=== PATIENT | female | born 1930 | race Caucasian/White ===

== ENCOUNTER 2017-08-08 12:02 | Inpatient (IN) | payer MEDICARE ==
[~2017-08-08] VITALS: Ht 170.2 cm; Wt 79.5 kg
[~2017-08-08 12:02] MED LIST: ADVAIR 100-501 EACH; AMIODARONE50 MG/1 M1 PO; ARICEPT5 MG PO; ASPIR 8181 MG; B-121000 MCG; CALCIUM 500+D1 EACH; CLOPIDOGREL75 MG PO; DEXILANT60 MG PO; GABAPENTIN300 MG PO; GINKGO BILOBA120 MG; GLUCOSAMINE1000 MG; LISINOPRIL10 MG PO; MIRAPEX0.25 MG PO; NORVASC5 MG PO; SPIRONOLACTONE50 MG; SYNTHROID125 MCG PO; TIZANIDINE HCL2 MG; VERAPAMIL ER120 MG; VESICARE5 MG PO; [UNRECOGNIZED DRUG - OTHER] PO
[2017-08-08 13:11] LABS: BILIRUBIN,URINE NEGATIVE (NEGATIVE); CLARITY,URINE CLEAR (CLEAR); COLOR,URINE YELLOW (YELLOW); KETONES,URINE NEGATIVE (NEGATIVE); LEUKOCYTE ESTERASE ,URINE 2+ (NEGATIVE); NITRITE,URINE NEGATIVE (NEGATIVE); PROTEIN,URINE DIPSTICK NEGATIVE (NEGATIVE); URINE UROBILINOGEN 0.2 mg/dL (0.2 - 1)
[2017-08-08 13:27] LABS: EPITHELIAL CELLS,URINE RARE /LPF
[2017-08-08 13:28] LABS: BASOPHILS % 0.5 % (0.0-1.0); EOSINOPHILS # (AUTO) 0.2 (0.0-0.4); EOSINOPHILS % 2.6 % (0.0-6.0); HEMATOCRIT 32.1 % (34.2-44.1); HEMOGLOBIN 10.7 g/dL (12.0-16.0); LYMPHOCYTES # (AUTO) 2.1 (1.0-3.2); LYMPHOCYTES % 28.2 % (18.0-39.1); MEAN CORPUSCULAR HEMOGLOBIN 32.2 pg (28-32); MEAN CORPUSCULAR HGB CONC 33.3 g/dL (31-35); MEAN CORPUSCULAR VOLUME 96.7 fL (81-99); MONOCYTES # (AUTO) 0.7 (0.2-0.8); MONOCYTES % 9.8 % (4.4-11.3); NEUTROPHILS # (AUTO) 4.3 (2.1-6.9); NEUTROPHILS % 58.6 % (38.7-80.0); PLATELET COUNT 200 x10e3/uL (140-360); RED BLOOD COUNT 3.32 x10e6/uL (3.6-5.1); RED CELL DISTRIBUTION WIDTH 12.5 % (11.7-14.4)
[2017-08-08 13:52] LABS: ALBUMIN 4.1 g/dL (3.5-5.0); ALBUMIN/GLOBULIN RATIO 1.3 (0.8-2.0); ANION GAP 15.1 mmol/L (8-16); CALCIUM 9.3 mg/dL (8.4-10.2); CREATININE, SERUM 1.49 mg/dL (0.57-1.11)
[2017-08-08 13:55] LABS: POTASSIUM 7.1 mmol/L (3.5-5.1)
[2017-08-08] MEDS ORDERED: SODIUM BICARBONATE 8.4% 50 ML VIAL IV STA (13:55)
[2017-08-08] MEDS ORDERED: DEXTROSE 50% SYRINGE 50 ML IV STA ×2 (13:55→22:52)
[2017-08-08] MEDS ORDERED: INSULIN REGULAR, HUMAN 100 UNIT/1 ML 3ML VIAL IV ONE ×2 (14:00→23:00)
[2017-08-08] MEDS ORDERED: CALCIUM GLUCONATE 10% INJ 0.465 MEQ/ML VIAL ONE (14:07)
[2017-08-08] MEDS ORDERED: SODIUM CHLORIDE 0.9% 250ML 250 ML ONE (14:10)
[2017-08-08] MEDS ORDERED: SODIUM BICARBONATE 8.4% INJ 50 ML SYR IV NR (14:15)
[2017-08-08] MEDS ORDERED: SOD POLYSTYRENE SULFONATE SUSP 15 GM/60 ML BTL PO NR (14:15)
[2017-08-08] MEDS ORDERED: ADVAIR 100-501 EACH INH (14:21)
[2017-08-08] MEDS ORDERED: AMIODARONE HCL200 MG PO (14:21)
[2017-08-08] MEDS ORDERED: TIZANIDINE HCL2 M1 PO (14:21)
[2017-08-08] MEDS ORDERED: CALCIUM GLUCONATE IV ONE (14:30)
[2017-08-08] MEDS ORDERED: SODIUM CHLORIDE 0.9% IV ONE (14:30)
--- NOTE | 2017-08-08 14:39 | Diagnostic Imaging Report ---
PROCEDURE: A single AP view of the chest. COMPARISON: Chest portable 06/17/2016. INDICATIONS: HIGH POTASSIUM LEVEL FINDINGS: Lines/tubes: None. Lungs: The lungs are well inflated and clear. There is no evidence of pneumonia or pulmonary edema. Bibasilar atelectasis. Pleura: There is no pleural effusion or pneumothorax. Heart and mediastinum: The heart and the mediastinum are unremarkable. Bones: No acute bony abnormality. Degenerative changes of the thoracic spine. IMPRESSION: No acute radiographic abnormality. Dictated by: Adam Up M.D. on 08/08/2017 at 14:39 Electronically approved by: Adam Up M.D. on 08/08/2017 at 14:39
[2017-08-08] MEDS: SODIUM CHLORIDE 0.9% 1000ML 1,000 ML IV SCH ×2 (16:10→23:40)
[2017-08-08 18:34] LABS: ANION GAP 19.6 mmol/L (8-16); CALCIUM 10.6 mg/dL (8.4-10.2); CREATININE, SERUM 1.49 mg/dL (0.57-1.11)
[2017-08-08 18:35] LABS: POTASSIUM 6.6 mmol/L (3.5-5.1)
--- OUTSIDE RECORDS SUMMARY | 2017-08-08 19:27 | XMS REPORT ---
[facility] Address Unknown Phone Unavailable Care Team Providers Care Events Assistant Name Role Phone AMBROSIO DAVIS Unavailable Unavailable Problems This patient has no known problems. Allergies, Adverse Reactions, Alerts This patient has no known allergies or adverse reactions. Medications This patient has no known medications. Results Test Description Test Time Test Comments Text Results Atomic Results Result Comments CHEST SINGLE (PORTABLE) [place] [id number] Patient Name: EVENS WISEMAN MR #: [id number] : 1930 Age/Sex: 86/F Req #: [id number] Adm Physician: Ordered by: AMBROSIO DAVIS MD Report #: [id number] Location: ER Room/Bed: Procedure: [id number] DX/CHEST SINGLE (PORTABLE) Exam Date: 08/08/17 Exam Time: 1415 REPORT STATUS: Signed PROCEDURE: A single AP view of the chest. COMPARISON: Chest portable 06/17/2016. INDICATIONS: HIGH POTASSIUM LEVEL FINDINGS: Lines/tubes: None. Lungs: The lungs are well inflated and clear. There is no evidence of pneumonia or pulmonary edema. Bibasilar atelectasis. Pleura: There is no pleural effusion or pneumothorax. Heart and mediastinum: The heart and the mediastinum are unremarkable. Bones: No acute bony abnormality. Degenerative changes of the thoracic spine. IMPRESSION: No acute radiographic abnormality. Dictated by: Sybil Robin M.D. on 2017 at 14:39 Electronically approved by: Sybil Robin M.D. on 2017 at 14:39 Dictated By: SYBIL ROBIN MD [id number] Transcribed By: PHILIP on 08/08/17 1439 COPY TO: AMBROSIO DAVIS MD
[2017-08-08 19:34] VITALS: BP 157/96
[2017-08-08 20:00] VITALS: BP 159/70
[2017-08-08] MEDS ORDERED: SOD POLYSTYRENE SULFONATE SUSP 15 GM/60 ML BTL PO ONE (22:15)
[2017-08-08] MEDS ORDERED: ACETAMINOPHEN 325 MG TAB PO PRN (22:45)
[2017-08-08] MEDS ORDERED: SODIUM BICARBONATE 8.4% INJ 50 ML SYR IV STA (22:52)
[2017-08-08] MEDS ORDERED: CALCIUM GLUCONATE 10% INJ 4.65 MEQ in SODIUM CHLORIDE 0.9% 50ML 50 ML IV ONE (23:00)
[2017-08-09] VITALS: BP 159/70
[2017-08-09] MEDS ORDERED: SODIUM CHLORIDE 0.9% 50ML 50 ML ONE (00:07)
[2017-08-09] MEDS ORDERED: SOD POLYSTYRENE SULFONATE SUSP 15 GM/60 ML BTL PO ONE ×2 (01:00→02:45)
[2017-08-09 02:21] LABS: ANION GAP 17.2 mmol/L (8-16); CALCIUM 9.5 mg/dL (8.4-10.2); CREATININE, SERUM 1.51 mg/dL (0.57-1.11); POTASSIUM 5.2 mmol/L (3.5-5.1)
[2017-08-09 04:00] VITALS: BP 143/63
[2017-08-09 07:08] LABS: ANION GAP 15.7 mmol/L (8-16); CALCIUM 9.7 mg/dL (8.4-10.2); CREATININE, SERUM 1.44 mg/dL (0.57-1.11); POTASSIUM 5.7 mmol/L (3.5-5.1)
[2017-08-09 07:30] VITALS: BP 155/79
[2017-08-09] MEDS ORDERED: SOD POLYSTYRENE SULFONATE SUSP 15 GM/60 ML BTL PR NR (08:00)
[2017-08-09 08:08] VITALS: BP 155/79
--- NOTE | 2017-08-09 08:29 | Consultation ---
DATE OF CONSULTATION: August 09, 2017 REASON FOR CONSULTATION: Hyperkalemia. Thank you for allowing us to participate in Ms. Todd's care. This is an 86-year-old female with a history of dementia. Creatinine of 1.1 to 1.3 last year. Came in apparently feeling well. I think she has some memory loss noting that she has been on Aricept before. During outpatient evaluation, potassium was found to be elevated. She was brought to the hospital because of this. Emergency room evaluation confirmed potassium was 7.1. Although it does not appear on her med list, nursing staff noted that when they called the pharmacy she had recently filled a prescription of spironolactone. She denies any swelling. She does not recall any dyspnea. She denies any nausea, vomiting or feeling poorly. Denies any recent NSAID use. PAST HISTORY: Baseline creatinine 1.1 to 1.3, dementia, hypothyroidism, presumed osteoporosis, question of arrhythmia. She has been on amiodarone. Hypertension. HOME MEDICATIONS 1. Amiodarone 100 mg daily. 2. Amlodipine 5 mg a day. 3. Aspirin 81 mg a day. 4. Plavix 75 mg a day. 5. Aricept 5 mg daily. 6. Levothyroxine 125 mcg a day. 7. Tizanidine. 8. VESIcare. FAMILY HISTORY: She is not sure of any kidney problems. SOCIAL HISTORY: Apparently, lives with her . REVIEW OF SYSTEMS CONSTITUTIONAL: No fever or chills. CARDIAC: No angina or syncope. GI: Denied nausea or vomiting. MUSCULOSKELETAL: No arthralgias. VASCULAR: Denies swelling. The rest of the review is negative. PHYSICAL EXAMINATION GENERAL: Laying in bed in no distress. VITALS: Temperature is 96.1, pulse 83, blood pressure 143/63. HEENT: Grossly atraumatic. NECK: No JVD. CHEST: Clear. Bilateral breath sounds are equal. CARDIAC: Normal heart tones. Rhythm sounds regular. Faint systolic murmur. ABDOMEN: Benign. Liver with no masses palpable. EXTREMITIES: Trace edema. NEURO: Appears to be forgetful. She does not recall taking Kayexalate at all. SKIN: No rash. Exposed areas with some evidence of sun damage. LABS: Hemoglobin 10.7. Potassium is down to 5.7 from 7.1. It did come up from 5.3 in the interim. Serum CO2 is 19, creatinine 1.44, BUN 29. UA is bland, but did show 2+ leukocyte esterase. ASSESSMENT 1. Hyperkalemia, possibly medication related as there is some concern about her taking spironolactone. 2. Hypertension. 3. Minimal edema. 4. Metabolic acidosis. PLAN: Start hydrochlorothiazide p.o. Repeat Kayexalate one dose. Recheck potassium. Expect if she is taking spironolactone, some of the effects can be long-lasting over several days. She is already on clonidine for blood pressure control. P.o. sodium bicarbonate for her metabolic acidosis. Will follow along. I did explain to her that the main problem with potassium is the risk of cardiac arrest. She nodded understanding. Once again, her memory remains in question. Job#: [id number] LUIS ALBERTO
[2017-08-09] MEDS: SODIUM CHLORIDE 0.9% 1000ML 1,000 ML IV SCH ×3 (10:21→21:17)
[2017-08-09] MEDS: CLONIDINE HCL 0.1 MG TAB PO SCH ×2 (10:22→17:29)
[2017-08-09] MEDS: SODIUM BICARBONATE 650 MG TAB PO SCH (10:22)
[2017-08-09] MEDS: HYDROCHLOROTHIAZIDE 25 MG TAB PO SCH (10:22)
[2017-08-09 16:00] VITALS: BP 174/74
--- NOTE | 2017-08-09 17:01 | Diagnostic Imaging Report ---
PROCEDURE:US RETROPERITONEAL ( KIDNEY ). COMPARISON:Renal ultrasound 06/26/2015. INDICATIONS:ELEVATED CREATININE TECHNIQUE: Newell-scale and color sonographic images of the bilateral kidneys and bladder where obtained in transverse and longitudinal planes. FINDINGS: RIGHT KIDNEY: 8.7 x 3.7 x 5.0 cm, cortex 1.1 cm Cysts: None Solid masses: None Stones: None Hydronephrosis: None Echogenicity: Normal LEFT KIDNEY: 9.7 x 4.3 x 4.3 cm, cortex 1.1 cm Cysts: None Solid masses: None Stones: None Hydronephrosis: None Echogenicity: Normal Bladder: Not visualized CONCLUSION: Normal kidneys. Dictated by: Rikki Lui M.D. on 08/09/2017 at 17:00 Electronically approved by: Rikki Lui M.D. on 08/09/2017 at 17:00
[2017-08-09 17:58] LABS: ANION GAP 15.4 mmol/L (8-16); CALCIUM 8.7 mg/dL (8.4-10.2); CREATININE, SERUM 1.23 mg/dL (0.57-1.11); POTASSIUM 4.4 mmol/L (3.5-5.1)
[2017-08-09 20:00] VITALS: BP 140/67
[2017-08-10] VITALS (7 sets, daily range): BP systolic 127–170; BP diastolic 64–71
[2017-08-10] MEDS ORDERED: CLONIDINE HCL 0.1 MG TAB PO PRN (05:30)
[2017-08-10] MEDS: SODIUM CHLORIDE 0.9% 1000ML 1,000 ML IV SCH (06:04)
[2017-08-10 06:36] LABS: CALCIUM 8.4 mg/dL (8.4-10.2); CREATININE, SERUM 1.13 mg/dL (0.57-1.11); MAGNESIUM 1.5 MG/DL (1.3-2.1); PHOSPHORUS 3.5 MG/DL (2.3-4.7)
[2017-08-10] MEDS ORDERED: SOD POLYSTYRENE SULFONATE SUSP 15 GM/60 ML BTL PO NR (09:00)
[2017-08-10] MEDS: SODIUM BICARBONATE 650 MG TAB PO SCH (09:39)
[2017-08-10] MEDS: HYDROCHLOROTHIAZIDE 25 MG TAB PO SCH (09:39)
[2017-08-11] VITALS: BP 137/80
[2017-08-11 04:00] VITALS: BP 144/67
[2017-08-11 06:22] LABS: ANION GAP 11.9 mmol/L (8-16); CALCIUM 8.3 mg/dL (8.4-10.2); CREATININE, SERUM 1.02 mg/dL (0.57-1.11); POTASSIUM 3.9 mmol/L (3.5-5.1)
[2017-08-11 07:55] VITALS: BP 92/58
[2017-08-11 07:58] VITALS: BP 147/81
[2017-08-11] MEDS: HYDROCHLOROTHIAZIDE 25 MG TAB PO SCH (08:07)
[2017-08-11] MEDS: SODIUM BICARBONATE 650 MG TAB PO SCH (08:07)
[2017-08-11] MEDS ORDERED: CLONIDINE HCL0.1 MG PO (10:36)
[2017-08-11] MEDS ORDERED: SODIUM BICARBO650 MG PO (10:36)
[2017-08-11] MEDS ORDERED: ESIDRIX25 MG PO (10:37)
--- NOTE | 2017-08-11 14:27 | Discharge Summary ---
Ms. Todd is an 86-year-old female with a history of dementia, hypertension, arrhythmia, hypothyroidism. She came to the emergency room. Apparently she was not feeling good. She was found to have renal problems and hyperkalemia. She was seen by hand bander. At the present time, creatinine went down to 1.02 and potassium 3.9. CO2 is 23. The plan is to discharge her home and have her follow up as an outpatient. On physical examination, she is awake and alert. Blood pressure is 147/81. The heart is irregularly irregular. Lungs are clear to auscultation. Abdomen is soft. On the blood work, potassium is 3.9, creatinine 1.02, glucose 94, white count 7.37, hemoglobin 10.7. DISCHARGE DIAGNOSES 1. Vhtks-yr-nigwaaf kidney disease, improving. 2. Hyperkalemia, resolved. 3. Acidosis, resolved. 4. Dementia, supportive care. 5. Hypertension. The plan at the present time is to discharge the patient home if it is okay with the hand bander. Have her follow up as an outpatient with her PCP in 1 week. Please see home medication reconciliation list. All of this was discussed with the patient and her at the bedside, and all questions were answered to satisfaction. They are to call me or come back to the emergency room if any recurrent problem. ASHLEY QUIÑONEZ MD Job#: [id number]
== END 2017-08-11 11:04 | disposition home or self-care (01) | DRG 683 ==
LOC: ER 12:02 → MED/SURG2 19:24
PROVIDERS: ADMIT Internal Medicine; ATTEND Internal Medicine
DX: N17.9 Acute kidney failure, unspecified (principal); E87.2 Acidosis; E87.5 Hyperkalemia; F03.90 Unspecified dementia, unspecified severity, without behavioral disturbance, psychotic disturbance, mood disturbance, and anxiety; N18.3 Chronic kidney disease, stage 3 (moderate); E03.9 Hypothyroidism, unspecified; M81.0 Age-related osteoporosis without current pathological fracture; I12.9 Hypertensive chronic kidney disease with stage 1 through stage 4 chronic kidney disease, or unspecified chronic kidney disease; I49.9 Cardiac arrhythmia, unspecified; Z79.82 Long term (current) use of aspirin; Z79.02 Long term (current) use of antithrombotics/antiplatelets; T50.0X5A Adverse effect of mineralocorticoids and their antagonists, initial encounter
CPT/HCPCS: 36415; 71045; 76770; 80048; 80053; 81001; 82948; 83735; 84100; 84132; 85025; 93005; 99284; J0610; J7030; J7050; J7799

== ENCOUNTER 2017-11-05 08:24 | Inpatient (IN) | payer MEDICARE ==
[~2017-11-05] VITALS: Ht 170.2 cm; Wt 76.2 kg
[~2017-11-05 08:24] MED LIST changes: +ADVAIR 100-501 EACH INH; +AMIODARONE HCL200 MG PO; +CLONIDINE HCL0.1 MG PO; +ESIDRIX25 MG PO; +SODIUM BICARBO650 MG PO; +TIZANIDINE HCL2 M1 PO
--- OUTSIDE RECORDS SUMMARY | 2017-11-05 08:27 | XMS REPORT | Continuity of Care Document ---
Author Author [facility] Organization [facility] Address [address] [place] [address] Phone Unavailable Care Team Providers Care Wet Process Miller Head Name Role Phone NONSTAFF PCP Unavailable Insurance Providers Guarantor Luzma Todd Address [address] [place] [address] Email [email or web address] Payer [employer] Medicare Policy Number [id number] Subscriber's Name Luzma Todd Relationship 18 Self / Same As Patient Group Number [id number] Group Name [employer] Effective Date 17 Advance Directives Directive Response Recorded Date/Time Does the patient have an advance directive? No 08/08/17 8:00pm If yes, is advance directive on file with [facility]? No 06/17/16 3:30pm If not on file with [facility] will patient provide a copy? No 06/17/16 3:30pm Do you have a Directive to Physician? No 08/08/17 5:22pm Do you have a Medical Power of Gas Appliance Installer? No 08/08/17 5:22pm Do you have an out of hospital Do Not Resuscitate Order? No 08/08/17 5:22pm Do you have any special needs we should be aware of? No 08/08/17 5:22pm Do you have a support person here with you today? Yes 08/08/17 5:22pm Did patient receive Notice of Privacy Practices? Yes 08/08/17 5:22pm Did patient receive patient rights and responsibilities? Yes 08/08/17 5:22pm Problems Medical Problem Onset Date Status Altered mental status, unspecified Unknown Hyperkalemia Unknown Hypoglycemia Unknown Renal failure Unknown TIA (transient ischemic attack) Unknown Medications Current Home Medications Medication Dose Units Route Directions Days Qty Instructions Start Date Amiodarone Hcl 200 Mg Tablet 100 Mg Oral Daily Amlodipine Besylate (Norvasc) 5 Mg Tab 10 Mg Oral Daily 30 Tab Aspirin (Aspir 81) 81 Mg Tablet. Calcium Carbonate/Vitamin D3 (Calcium 500+D Tablet Chew) 1 Each Tab.chew Clonidine Hcl 0.1 Mg Tablet 1 Tab Oral Twice A Day 60 Tab Clopidogrel Bisulfate (Clopidogrel) 75 Mg Tablet 75 Mg Oral Daily 30 Tab Dexlansoprazole (Dexilant) 60 Mg Cap. 60 Mg Oral Daily THERAPEUTIC INTERCHANGE WITH PROTONIX PER [facility] Donepezil Hcl (Aricept) 5 Mg Tablet 10 Mg Oral Bedtime 60 Tab Fluticasone/Salmeterol (Advair 100-50 Diskus) 1 Each Disk.w.dev 2 Inh Inhalation As Needed Hydrochlorothiazide (Esidrix*) 25 Mg Tab 12.5 Mg Oral Daily Levothyroxine Sodium (Synthroid) 125 Mcg Tab 100 Mcg Oral Today At 6:30AM 30 Tab Pramipexole Di-Hcl (Mirapex) 0.25 Mg Tablet 0.125 Mg Oral Bedtime 30 Tab Sodium Bicarbonate 650 Mg Tablet 1,300 Mg Oral Daily 30 Tab Solifenacin Succinate (Vesicare) 5 Mg Tablet 10 Mg Oral Daily 30 Tab Tizanidine Hcl 2 Mg Capsule 2 Mg Oral Daily Past Home Medications Medication Directions Ordered Status Amiodarone Hcl 50 Mg/1 Ml Vial, 100 Mg Oral Daily Discontinued Circu Plus , 4500 Mg Oral Discontinued Cyanocobalamin (Vitamin B-12) (B-12) 1,000 Mcg Tablet.er, Discontinued Fluticasone/Salmeterol (Advair 100-50 Diskus) 1 Each Disk.w.dev, Discontinued Gabapentin 300 Mg Capsule, 300 Mg Oral Twice A Day Discontinued Ginkgo Biloba 120 Mg Tablet, 240 Discontinued Glucosamine Sulfate 2KCL (Glucosamine) 1,000 Mg Tablet, Discontinued Lisinopril 10 Mg Tablet, 40 Mg Oral Daily Discontinued Lisinopril 10 Mg Tablet, 10 Mg Oral Daily Discontinued Spironolactone 50 Mg Tablet, Discontinued Tizanidine Hcl 2 Mg Tablet, Discontinued Verapamil Hcl (Verapamil Er) 120 Mg Cap24h.pel, Discontinued Social History Social History Problem Response Recorded Date/Time Onset Date Status Hx Psychiatric Problems No 08/08/2017 8:00pm Not Applicable Not Applicable Hx Eating Disorder No 08/08/2017 8:00pm Not Applicable Not Applicable Hx Substance Use Disorder No 08/08/2017 8:00pm Not Applicable Not Applicable Hx Depression No 08/08/2017 8:00pm Not Applicable Not Applicable Hx Alcohol Use No 08/08/2017 8:00pm Not Applicable Not Applicable Hx Substance Use Treatment No 08/08/2017 8:00pm Not Applicable Not Applicable Hx Physical Abuse No 08/08/2017 8:00pm Not Applicable Not Applicable Hospital Discharge Instructions No hospital discharge instruction information available. Plan of Care Discharge Date 08/11/17 11:04am Disposition HOME, SELF-CARE Instructions/Education Provided Hyperkalemia Prescriptions See Medication Section Additional Instructions/Education FOLLOW UP WITH PRIMARY CARE PHYSICIAN IN 7 TO 10 DAYS. CONTINUE HOME MEDUCATIONS. ACTIVITY TOLERATED. Functional Status Query Response Date Recorded Assistive Devices None August 08, 2017 8:00pm Ambulation Ability Independent August 08, 2017 8:00pm Toileting Ability Minimum Assistance August 10, 2017 5:28pm Allergies, Adverse Reactions, Alerts No known allergies. Immunizations No immunization information available. Vital Signs Acute Vital Signs Vital Response Date/Time Temperature (Fahrenheit) 97.4 degrees F (97.6 - 99.5) 08/11/2017 7:58am Pulse Pulse Rate (adult) 74 bpm (60 - 90) 08/11/2017 7:58am Respiratory Rate 20 bpm (12 - 24) 08/11/2017 7:58am Blood Pressure 147/81 mm Hg 08/11/2017 7:58am Height 5 ft 7 in 08/08/2017 7:34pm Weight 175.38 lb 08/11/2017 1:07am Body Mass Index 27.5 kg/m^2 08/11/2017 1:07am Results Laboratory Results Test Name Result Units Flags Reference Collection Date/Time Result Date/ Time Comments White Blood Count 7.37 x10e3/uL 4.8-10.8 08/08/2017 1:08/08/2017 1 :33pm Red Blood Count 3.32 x10e6/uL L 3.6-5.1 08/08/2017 1:08/08/2017 1: 33pm Hemoglobin 10.7 g/dL L 12.0-16.0 08/08/2017 1:08/08/2017 1:33pm Hematocrit 32.1 % L 34.2-44.1 08/08/2017 1:08/08/2017 1:33pm Mean Corpuscular Volume 96.7 fL 81-99 08/08/2017 1:08/08/2017 1: 33pm Mean Corpuscular Hemoglobin 32.2 pg H 28-32 08/08/2017 1:2017 1:33pm Mean Corpuscular Hemoglobin Concent 33.3 g/dL 31-35 08/08/2017 1:08/08/2017 1:33pm Red Cell Distribution Width 12.5 % 11.7-14.4 08/08/2017 1:2017 1:33pm Platelet Count 200 x10e3/uL 140-360 08/08/2017 1:08/08/2017 1: 33pm Neutrophils (%) (Auto) 58.6 % 38.7-80.0 08/08/2017 1:08/08/2017 1: 33pm Lymphocytes (%) (Auto) 28.2 % 18.0-39.1 08/08/2017 1:08/08/2017 1: 33pm Monocytes (%) (Auto) 9.8 % 4.4-11.3 08/08/2017 1:08/08/2017 1: 33pm Eosinophils (%) (Auto) 2.6 % 0.0-6.0 08/08/2017 1:08/08/2017 1: 33pm Basophils (%) (Auto) 0.5 % 0.0-1.0 08/08/2017 1:08/08/2017 1:33pm IM GRANULOCYTES % 0.3 % 0.0-1.0 08/08/2017 1:08/08/2017 1:33pm Neutrophils # (Auto) 4.3 2.1-6.9 08/08/2017 1:23pm 08/08/2017 1:33pm Lymphocytes # (Auto) 2.1 1.0-3.2 08/08/2017 1:23pm 08/08/2017 1:33pm Monocytes # (Auto) 0.7 0.2-0.8 08/08/2017 1:23pm 08/08/2017 1:33pm Eosinophils # (Auto) 0.2 0.0-0.4 08/08/2017 1:23pm 08/08/2017 1:33pm Basophils # (Auto) 0.0 0.0-0.1 08/08/2017 1:23pm 08/08/2017 1:33pm Absolute Immature Granulocyte (auto 0.02 x10e3/uL 0-0.1 08/08/2017 1: 23pm 08/08/2017 1:33pm Urine Color YELLOW YELLOW 08/08/2017 12:25pm 08/08/2017 1:15pm Urine Clarity CLEAR CLEAR 08/08/2017 12:25pm 08/08/2017 1:15pm Urine Specific Hye 1.015 1.010-1.025 08/08/2017 12:25pm 2017 1:15pm Urine pH 5 5 - 7 08/08/2017 12:25pm 08/08/2017 1:15pm Urine Leukocyte Esterase 2+ H NEGATIVE 08/08/2017 12:25pm 08/08/2017 1 :15pm Urine Nitrite NEGATIVE NEGATIVE 08/08/2017 12:25pm 08/08/2017 1:15pm Urine Protein NEGATIVE NEGATIVE 08/08/2017 12:25pm 08/08/2017 1:15pm Urine Glucose (UA) NEGATIVE NEGATIVE 08/08/2017 12:25pm 08/08/2017 1: 15pm Urine Ketones NEGATIVE NEGATIVE 08/08/2017 12:25pm 08/08/2017 1:15pm Urine Urobilinogen 0.2 mg/dL 0.2 - 1 08/08/2017 12:25pm 08/08/2017 1: 15pm Urine Bilirubin NEGATIVE NEGATIVE 08/08/2017 12:25pm 08/08/2017 1: 15pm Urine Blood NEGATIVE NEGATIVE 08/08/2017 12:25pm 08/08/2017 1:15pm Urine WBC 6-10 /HPF H 0-5 08/08/2017 12:25pm 08/08/2017 1:27pm Urine RBC NONE /HPF 0-5 08/08/2017 12:25pm 08/08/2017 1:27pm Urine Bacteria NONE /HPF NONE 08/08/2017 12:25pm 08/08/2017 1:27pm Urine Epithelial Cells RARE /LPF NONE 08/08/2017 12:25pm 08/08/2017 1: 27pm Sodium Level 142 mmol/L 136-145 08/11/2017 5:44am 08/11/2017 6:30am Potassium Level 3.9 mmol/L # 3.5-5.1 08/11/2017 5:44am 08/11/2017 6:30am Chloride Level 111 mmol/L H 98-107 08/11/2017 5:44am 08/11/2017 6:30am Carbon Dioxide Level 23 mmol/L 22-29 08/11/2017 5:44am 08/11/2017 6: 30am Anion Gap 11.9 mmol/L 8-16 08/11/2017 5:44am 08/11/2017 6:30am Blood Urea Nitrogen 14 mg/dL 7-08/11/2017 5:44am 08/11/2017 6:30am Creatinine 1.02 mg/dL 0.57-1.11 08/11/2017 5:44am 08/11/2017 6:30am BUN/Creatinine Ratio 14 6-25 08/11/2017 5:44am 08/11/2017 6:30am Estimat Glomerular Filtration Rate 51 ML/MIN L 60- 08/11/2017 5:44am 06/2017 6:30am Ranges were taken from the National Kidney Disease Education Program and the National Kidney Foundation literature. Reference ranges: 60 or greater: Normal 16-59 (for 3 consecutive months): Chronic kidney disease 15 or less: Kidney failure Glucose Level 94 mg/dL 74-118 08/11/2017 5:44am 08/11/2017 6:30am Calcium Level 8.3 mg/dL L 8.4-10.2 08/11/2017 5:44am 08/11/2017 6:30am Bedside Glucose 106 mg/dL 70-120 08/09/2017 2:18am 08/09/2017 2:33am Meter ID: [id number] Phosphorus Level 3.5 MG/DL 2.3-4.7 08/10/2017 5:46am 08/10/2017 6:40am Magnesium Level 1.5 MG/DL 1.3-2.1 08/10/2017 5:46am 08/10/2017 6:40am Total Bilirubin 0.5 mg/dL 0.2-1.2 08/08/2017 1:23pm 08/08/2017 1:55pm Aspartate Amino Transf (AST/SGOT) 11 IU/L 5-34 08/08/2017 1:23pm 2017 1:55pm Alanine Aminotransferase (ALT/SGPT) 10 IU/L 0-55 08/08/2017 1:23pm 1:55pm Total Protein 7.3 g/dL 6.5-8.1 08/08/2017 1:23pm 08/08/2017 1:55pm Albumin 4.1 g/dL 3.5-5.0 08/08/2017 1:23pm 08/08/2017 1:55pm Globulin 3.2 g/dL 2.3-3.5 08/08/2017 1:23pm 08/08/2017 1:55pm Albumin/Globulin Ratio 1.3 0.8-2.0 08/08/2017 1:23pm 08/08/2017 1: 55pm Alkaline Phosphatase 71 IU/L 40-150 08/08/2017 1:23pm 08/08/2017 1: 55pm Procedures Procedure Status Date Provider(s) Ultrasound, renal Active 08/09/17 RIGOBERTO DURÁN MD Encounters Encounter Location Arrival/Admit Date Discharge/Depart Date Attending Provider Discharged Inpatient [facility] 08/08/17 7:24pm 08/11/17 11:04am ASLHEY QUIÑONEZ MD
[2017-11-05 08:55] LABS: BASOPHILS % 0.3 % (0.0-1.0); EOSINOPHILS # (AUTO) 0.1 (0.0-0.4); EOSINOPHILS % 2.2 % (0.0-6.0); HEMATOCRIT 29.6 % (34.2-44.1); HEMOGLOBIN 10.1 g/dL (12.0-16.0); LYMPHOCYTES # (AUTO) 2.6 (1.0-3.2); LYMPHOCYTES % 44.8 % (18.0-39.1); MEAN CORPUSCULAR HEMOGLOBIN 33.2 pg (28-32); MEAN CORPUSCULAR HGB CONC 34.1 g/dL (31-35); MEAN CORPUSCULAR VOLUME 97.4 fL (81-99); MONOCYTES # (AUTO) 0.4 (0.2-0.8); MONOCYTES % 7.4 % (4.4-11.3); NEUTROPHILS # (AUTO) 2.6 (2.1-6.9); PLATELET COUNT 197 x10e3/uL (140-360); RED BLOOD COUNT 3.04 x10e6/uL (3.6-5.1); RED CELL DISTRIBUTION WIDTH 14.6 % (11.7-14.4)
[2017-11-05 08:58] LABS: CLARITY,URINE HAZY (CLEAR); COLOR,URINE YELLOW (YELLOW)
[2017-11-05 08:59] LABS: BILIRUBIN,URINE NEGATIVE (NEGATIVE); KETONES,URINE NEGATIVE (NEGATIVE); LEUKOCYTE ESTERASE ,URINE 1+ (NEGATIVE); NITRITE,URINE NEGATIVE (NEGATIVE); PROTEIN,URINE DIPSTICK NEGATIVE (NEGATIVE); URINE UROBILINOGEN 0.2 mg/dL (0.2 - 1)
[2017-11-05 09:08] LABS: BACTERIA,URINE MANY /HPF; EPITHELIAL CELLS,URINE MANY /LPF; RBC,URINE 0-5 /HPF (0-5); WBC,URINE (MAN) 21-50 /HPF (0-5)
[2017-11-05] MEDS ORDERED: SOD POLYSTYRENE SULFONATE SUSP 15 GM/60 ML BTL PO ONE (10:00)
[2017-11-05 10:07] LABS: ANION GAP 14.9 mmol/L (8-16); CREATININE, SERUM 1.83 mg/dL (0.57-1.11)
[2017-11-05 10:10] LABS: FREE T4 (FREE THYROXINE) 0.48 ng/dL (0.9-1.8); POTASSIUM 5.9 mmol/L (3.5-5.1)
[2017-11-05] MEDS ORDERED: LEVOTHYROXINE SODIUM 50 MCG TAB PO ONE (11:00)
[2017-11-05] MEDS ORDERED: [UNRECOGNIZED DRUG - OTHER] PO (11:33)
[2017-11-05] MEDS ORDERED: ALLERY SHOTS INJ (11:33)
[2017-11-05] MEDS ORDERED: [UNRECOGNIZED DRUG - OTHER] PO (11:33)
[2017-11-05] MEDS ORDERED: B-12 PO (11:33)
[2017-11-05] MEDS: FAMOTIDINE 20 MG TAB PO SCH (11:40)
[2017-11-05] MEDS ORDERED: GINKGO BILOBA120 MG PO (11:46)
[2017-11-05] MEDS ORDERED: VERAPAMIL ER120 MG PO (11:46)
[2017-11-05] MEDS ORDERED: FISH OIL 1,2001 EACH PO (11:46)
[2017-11-05] MEDS ORDERED: LISINOPRIL10 MG PO (11:46)
[2017-11-05] MEDS ORDERED: GLUCOSAMINE1000 MG PO (11:46)
[2017-11-05] MEDS ORDERED: GABAPENTIN300 MG PO (11:46)
[2017-11-05] MEDS: AMLODIPINE BESYLATE 5 MG TAB PO SCH (14:30)
[2017-11-05] MEDS ORDERED: CEFTRIAXONE SOD 1 GM/NS 50 ML 50 ML IV SCH (14:30)
[2017-11-05] MEDS: SODIUM CHLORIDE 0.9% 1000ML 1,000 ML IV SCH (14:30)
[2017-11-05] MEDS: CEFTRIAXONE SOD 1 GM VIAL IV SCH (15:00)
--- NOTE | 2017-11-05 16:14 | History and Physical ---
PCP: Patient does not have a local PCP. CHIEF COMPLAINT: Elevated potassium. HISTORY OF PRESENT ILLNESS: Ms. Todd is an 86-year-old lady who was sent into the emergency room by her primary care after routine labs showed an elevated potassium that was over 6. On presentation here, potassium is 5.9. REVIEW OF SYSTEMS: She denies fever, chills, or weight loss. She denies sinus congestion or sore throat. She denies chest pain or palpitations. She denies shortness of breath, wheezing, or cough. She denies abdominal pain, nausea, vomiting, or melena. She denies dysuria or flank pain. She denies rash or pruritus. She denies joint pain or swelling. She denies bleeding or bruising. She denies headache, vertigo, or loss of consciousness. She does have mild dementia. She denies depression, agitation, homicide or suicidal ideation. PAST MEDICAL HISTORY: Significant for longstanding hypertension, dementia, hypothyroidism, and chronic kidney disease stage 3. CURRENT MEDICATIONS: Include; 1. Amiodarone 200 mg 5 days a week. 2. Calcium carbonate daily. 3. Dexilant 60 mg daily. 4. Advair daily. 5. Gabapentin 300 mg daily. 6. Hydrochlorothiazide 12.5 mg daily. 7. Lisinopril 20 mg daily. 8. VESIcare 10 mg daily. 9. Verapamil 120 mg daily. 10. Norvasc 5 mg daily. 11. Aspirin 81 mg daily. 12. Plavix 75 mg daily. 13. Aricept 10 mg at bedtime. 14. Levothyroxine 100 mcg daily. 15. Mirapex 0.125 mg at bedtime. 16. Sodium bicarbonate 650 mg twice daily. ALLERGIES: SHE HAS A STATED ALLERGY TO SULFUR DIOXIDE. SOCIAL HISTORY: The patient is . She is here with her . Singaporean is her primary language. She does not smoke, drink, or use illegal drugs. She requires a lot of assistance and supervision due to mild dementia. PHYSICAL EXAMINATION PSYCHIATRIC: She is awake, alert, and oriented mostly and in no distress. She has a normal body habitus. VITAL SIGNS: Are as follows: Blood pressure initially 150/54 and currently 136/64, heart rate ranging between 46 and 49 and regular sinus bradycardia, respiratory rate 18, O2 sat 100%, temperature 98.1. HEENT: Her head is atraumatic. Her eyes are anicteric with clear conjunctivae. Ears and nares are without erythema or discharge. Her oropharynx is clear. NECK: Supple with no mass or thyromegaly. LYMPHATIC SYSTEM: She has no palpable cervical, axillary, or inguinal adenopathy. CARDIOVASCULAR: Her heart has a regular rate and rhythm, somewhat bradycardic without murmur or extra heart sound. She has no carotid bruits. She has no peripheral edema. She has palpable dorsal pedal pulses. RESPIRATORY: Lungs are clear to auscultation and percussion with normal respiratory effort. GASTROINTESTINAL: Her abdomen is soft without organomegaly, masses, or tenderness. She has normal bowel sounds present. CUTANEOUS: Her skin is warm and dry to touch with no rash or skin breakdown. MUSCULOSKELETAL: Her joints are in normal alignment without erythema or swelling. She has no calf tenderness. NEUROLOGIC: Nonfocal with intact cranial nerves and no motor or sensory deficits. She has mild dementia. DIAGNOSTIC STUDIES: Her UA shows 20 to 50 white cells and many bacteria. Her troponin is 0.001. Free T4 is 0.48, which is a little low. Her chemistry shows a potassium of 5.9, the rest of her electrolytes are normal. CO2 is 17, creatinine 1.83, BUN 41 for a GFR of 26; her baseline is around 40. Her calcium is 9.0 and glucose is 90. Her CBC shows a white count of 5.85 with normal differential, hemoglobin 10.1, hematocrit 29.6, and platelet count 197,000. IMPRESSION AND PLAN 1. Hyperkalemia. The patient was given Kayexalate in the ER along with a normal saline bolus, is now on IV saline. 2. Acute kidney injury on chronic kidney disease stage 3. The patient is being gently hydrated with IV fluids. 3. Urinary tract infection. The patient has been started empirically on IV Rocephin pending culture results. 4. Hypertension. The patient will continue with her Norvasc. Her blood pressure is fairly well controlled. We will continue Norvasc. We will increase the dose to 10 mg a day. We will stop the lisinopril permanently in view of multiple episodes of hyperkalemia. Also, we will stop hydrochlorothiazide in view of her acute kidney injury and relative dehydration. The patient should probably not be restarted on these 2 medications. We will hold her verapamil as well since she is on Norvasc and that seems to be controlling her blood pressure. 5. Dementia. Supportive care. We will continue Aricept at bedtime. 6. For prophylaxis, the patient is on Lovenox for DVT prophylaxis and Pepcid for GI prophylaxis. Job#: [id number] SAMANTHA
[2017-11-05] MEDS: SODIUM BICARBONATE 650 MG TAB PO SCH (17:00)
[2017-11-05] MEDS: ENOXAPARIN 30 MG/0.3 ML SYR SC SCH (17:00)
[2017-11-05 17:07] VITALS: BP 155/67
[2017-11-05 18:17] VITALS: BP 155/67
[2017-11-05 20:00] VITALS: BP 141/63
[2017-11-05] MEDS: DONEPEZIL HCL 5 MG TAB PO SCH (21:15)
[2017-11-05] MEDS: PRAMIPEXOLE DIHYDROCHLORIDE 0.25 MG TAB PO SCH (21:15)
[2017-11-06] VITALS (9 sets, daily range): BP systolic 114–188; BP diastolic 58–72
[2017-11-06] MEDS: CEFTRIAXONE SOD 1 GM VIAL IV SCH ×2 (03:05→15:01)
[2017-11-06] MEDS: LEVOTHYROXINE SODIUM 100 MCG TAB PO SCH (05:44)
[2017-11-06] MEDS: SODIUM CHLORIDE 0.9% 1000ML 1,000 ML IV SCH ×2 (06:28→19:12)
[2017-11-06 06:31] LABS: BASOPHILS % 0.5 % (0.0-1.0); EOSINOPHILS # (AUTO) 0.1 (0.0-0.4); EOSINOPHILS % 1.7 % (0.0-6.0); HEMATOCRIT 31.9 % (34.2-44.1); HEMOGLOBIN 10.5 g/dL (12.0-16.0); LYMPHOCYTES # (AUTO) 2.9 (1.0-3.2); LYMPHOCYTES % 44.5 % (18.0-39.1); MEAN CORPUSCULAR HEMOGLOBIN 32.5 pg (28-32); MEAN CORPUSCULAR HGB CONC 32.9 g/dL (31-35); MEAN CORPUSCULAR VOLUME 98.8 fL (81-99); MONOCYTES # (AUTO) 0.5 (0.2-0.8); MONOCYTES % 6.9 % (4.4-11.3); NEUTROPHILS % 45.9 % (38.7-80.0); PLATELET COUNT 205 x10e3/uL (140-360); RED BLOOD COUNT 3.23 x10e6/uL (3.6-5.1); RED CELL DISTRIBUTION WIDTH 14.7 % (11.7-14.4)
[2017-11-06 07:15] LABS: ANION GAP 13.7 mmol/L (8-16); CALCIUM 9.2 mg/dL (8.4-10.2); CREATININE, SERUM 1.58 mg/dL (0.57-1.11); MAGNESIUM 1.9 MG/DL (1.3-2.1); PHOSPHORUS 4.1 MG/DL (2.3-4.7); POTASSIUM 4.7 mmol/L (3.5-5.1)
[2017-11-06] MEDS: SODIUM BICARBONATE 650 MG TAB PO SCH ×2 (08:33→16:22)
[2017-11-06] MEDS: CLOPIDOGREL BISULFATE 75 MG TAB PO SCH (08:33)
[2017-11-06] MEDS: FAMOTIDINE 20 MG TAB PO SCH ×2 (08:33→16:22)
[2017-11-06] MEDS: ASPIRIN 81 MG CHEW TAB PO SCH (08:33)
[2017-11-06] MEDS: AMLODIPINE BESYLATE 5 MG TAB PO SCH (08:33)
[2017-11-06] MEDS ORDERED: ASPIRIN 325 MG TAB EC PO SCH (09:00)
[2017-11-06] MEDS ORDERED: AMLODIPINE BESYLATE 5 MG TAB PO SCH (09:00)
[2017-11-06] MEDS: DOXAZOSIN MESYLATE 2 MG TAB PO SCH (16:22)
[2017-11-06] MEDS: ENOXAPARIN 30 MG/0.3 ML SYR SC SCH (16:22)
[2017-11-06] MEDS ORDERED: SODIUM CHLORIDE 0.9% 1000ML 1,000 ML ONE (18:48)
[2017-11-06 20:14] LABS: BASOPHILS % 0.4 % (0.0-1.0); EOSINOPHILS # (AUTO) 0.1 (0.0-0.4); EOSINOPHILS % 1.2 % (0.0-6.0); HEMATOCRIT 26.5 % (34.2-44.1); HEMOGLOBIN 9.2 g/dL (12.0-16.0); LYMPHOCYTES # (AUTO) 1.4 (1.0-3.2); LYMPHOCYTES % 27.7 % (18.0-39.1); MEAN CORPUSCULAR HEMOGLOBIN 33.3 pg (28-32); MEAN CORPUSCULAR HGB CONC 34.7 g/dL (31-35); MONOCYTES # (AUTO) 0.5 (0.2-0.8); MONOCYTES % 9.2 % (4.4-11.3); NEUTROPHILS # (AUTO) 3.1 (2.1-6.9); NEUTROPHILS % 61.1 % (38.7-80.0); PLATELET COUNT 175 x10e3/uL (140-360); RED BLOOD COUNT 2.76 x10e6/uL (3.6-5.1); RED CELL DISTRIBUTION WIDTH 14.9 % (11.7-14.4)
[2017-11-06 20:37] LABS: ALBUMIN 3.6 g/dL (3.5-5.0); ALBUMIN/GLOBULIN RATIO 1.6 (0.8-2.0); ANION GAP 14.2 mmol/L (8-16); CALCIUM 8.4 mg/dL (8.4-10.2); CREATININE, SERUM 1.41 mg/dL (0.57-1.11); POTASSIUM 4.2 mmol/L (3.5-5.1)
[2017-11-06] MEDS: DONEPEZIL HCL 5 MG TAB PO SCH (21:06)
[2017-11-06] MEDS: PRAMIPEXOLE DIHYDROCHLORIDE 0.25 MG TAB PO SCH (21:06)
[2017-11-07] VITALS: BP 127/60
[2017-11-07] MEDS: SODIUM CHLORIDE 0.9% 1000ML 1,000 ML IV SCH (01:26)
[2017-11-07] MEDS: CEFTRIAXONE SOD 1 GM VIAL IV SCH (02:30)
[2017-11-07 04:00] VITALS: BP 136/63
[2017-11-07] MEDS: LEVOTHYROXINE SODIUM 100 MCG TAB PO SCH (05:58)
[2017-11-07 06:36] LABS: BASOPHILS % 0.2 % (0.0-1.0); EOSINOPHILS # (AUTO) 0.1 (0.0-0.4); EOSINOPHILS % 1.2 % (0.0-6.0); HEMOGLOBIN 8.1 g/dL (12.0-16.0); LYMPHOCYTES # (AUTO) 1.5 (1.0-3.2); LYMPHOCYTES % 29.8 % (18.0-39.1); MEAN CORPUSCULAR HEMOGLOBIN 32.7 pg (28-32); MEAN CORPUSCULAR HGB CONC 33.8 g/dL (31-35); MEAN CORPUSCULAR VOLUME 96.8 fL (81-99); MONOCYTES # (AUTO) 0.4 (0.2-0.8); MONOCYTES % 7.2 % (4.4-11.3); NEUTROPHILS % 61.4 % (38.7-80.0); PLATELET COUNT 143 x10e3/uL (140-360); RED BLOOD COUNT 2.48 x10e6/uL (3.6-5.1); RED CELL DISTRIBUTION WIDTH 14.8 % (11.7-14.4)
[2017-11-07 07:01] LABS: CALCIUM 8.2 mg/dL (8.4-10.2); CREATININE, SERUM 1.17 mg/dL (0.57-1.11); MAGNESIUM 1.7 MG/DL (1.3-2.1)
[2017-11-07 07:46] VITALS: BP 145/65
[2017-11-07] MEDS: FAMOTIDINE 20 MG TAB PO SCH (08:29)
[2017-11-07] MEDS: ASPIRIN 81 MG CHEW TAB PO SCH (08:29)
[2017-11-07] MEDS: SODIUM BICARBONATE 650 MG TAB PO SCH (08:29)
[2017-11-07] MEDS: AMLODIPINE BESYLATE 5 MG TAB PO SCH (08:29)
[2017-11-07] MEDS: CLOPIDOGREL BISULFATE 75 MG TAB PO SCH (08:29)
[2017-11-07] MEDS: DOXAZOSIN MESYLATE 2 MG TAB PO SCH (09:00)
[2017-11-07 09:17] VITALS: BP 145/65
[2017-11-07] MEDS ORDERED: NORVASC10 MG PO (11:07)
[2017-11-07] MEDS ORDERED: LEVOTHYROXINE112 MCG PO (11:07)
[2017-11-07 11:58] VITALS: BP 145/65
[2017-11-08] MEDS ORDERED: AMLODIPINE BESYLATE 10 MG TAB PO SCH (09:00)
--- NOTE | 2017-11-08 11:13 | Discharge Summary ---
ADMISSION DIAGNOSES 1. Hyperkalemia. 2. Acute kidney injury on chronic kidney disease stage 3. 3. Urinary tract infection. 4. Hypertension. 5. Dementia. DISCHARGE DIAGNOSES 1. Hyperkalemia. 2. Acute kidney injury on chronic kidney disease stage 3. 3. Urinary tract infection. 4. Hypertension. 5. Dementia. 6. Hypothyroidism. 7. Hypocalcemia. HISTORY: Patient has a history of hypertension, dementia, hypothyroidism and CKD 3. HOSPITAL COURSE: An 86-year-old female who was sent to the ER by her PCP after labs showed an elevated potassium that was over 6. On admission, her potassium was 5.9. She was given Kayexalate in the ER along with an NS bolus. She was started empirically on IV Rocephin due to urinalysis that showed bacteria. Patient was started on her Norvasc for home although the dose was increased to 10 mg. Her lisinopril was stopped due to the hyperkalemia and the hydrochlorothiazide was stopped due to the kidney injury. The urine culture came back contaminated. The patient was asymptomatic after 3 days of antibiotics. Potassium on day of discharge was 4.0, sodium 140, creatinine 1.17, BUN 22, GFR of 44. TSH of 61, free T4 of 0.61. WBC of 4.87, hemoglobin 8.1, hematocrit 24, platelets 143,000. After getting so many fluids, the patient became hypertensive and it was attempted to start Cardura for her. Her blood pressure dropped systolically to the 70s, so the Cardura was stopped and she was sent home on just Norvasc and her levothyroxine was increased to 112 mcg. The patient was instructed to follow up with PCP in 1 to 2 weeks and take her blood pressure log with her and to instruct the PCP that we had recently increased her levothyroxine. Patient and agree and are ready to go home. Dictated By: Shalonda Reynoso NP SHANKAR COLIN MD Job#: [id number] GE
== END 2017-11-07 13:32 | disposition home or self-care (01) | DRG 683 ==
LOC: ER 08:24 → ERHOLD 11:13 → MED/SURG 13:48
PROVIDERS: ADMIT Internal Medicine; ATTEND Internal Medicine
DX: N17.9 Acute kidney failure, unspecified (principal); N39.0 Urinary tract infection, site not specified; E87.5 Hyperkalemia; I12.9 Hypertensive chronic kidney disease with stage 1 through stage 4 chronic kidney disease, or unspecified chronic kidney disease; N18.3 Chronic kidney disease, stage 3 (moderate); F03.90 Unspecified dementia, unspecified severity, without behavioral disturbance, psychotic disturbance, mood disturbance, and anxiety; E03.9 Hypothyroidism, unspecified; R00.1 Bradycardia, unspecified; E03.4 Atrophy of thyroid (acquired); E86.0 Dehydration; E83.51 Hypocalcemia
CPT/HCPCS: 99284; J0696; J1650; J7030

== ENCOUNTER 2018-08-07 08:55 | Inpatient (IN) | payer MEDICARE ==
[~2018-08-07] VITALS: Ht 167.6 cm; Wt 86.2 kg
[~2018-08-07 08:55] MED LIST changes: +ALLERY SHOTS INJ; -ASPIR 8181 MG; +ASPIR 8181 MG PO; +B-12 PO; +FISH OIL 1,2001 EACH PO; +GINKGO BILOBA120 MG PO; +GLUCOSAMINE1000 MG PO; +LEVOTHYROXINE112 MCG PO; +NORVASC10 MG PO; +VERAPAMIL ER120 MG PO; +[UNRECOGNIZED DRUG - OTHER] PO; +[UNRECOGNIZED DRUG - OTHER] PO
[2018-08-07] MEDS ORDERED: SODIUM CHLORIDE 0.9% 1000ML 1,000 ML ONE (09:06)
[2018-08-07] MEDS ORDERED: ALBUTEROL SULF 0.083% NEB SOLN 3 ML NEB NEB STA (09:12)
[2018-08-07] MEDS ORDERED: SODIUM CHLORIDE 0.9% 1000ML 1,000 ML IV STA (09:14)
[2018-08-07] MEDS ORDERED: IPRATROPIUM BROMIDE 0.02% 2.5 ML NEB NEB ONE (09:15)
[2018-08-07 09:38] LABS: ABG HCO3 26 mmol/L (23-28); ABG PCO2 38 mmHg (41-51); ABG PH 7.44 (7.31-7.41); ABG PO2 66 mmHg (80-105)
[2018-08-07 09:53] LABS: BASOPHILS % 0.3 % (0.0-1.0); EOSINOPHILS # (AUTO) 0.1 (0.0-0.4); HEMATOCRIT 29.5 % (34.2-44.1); HEMOGLOBIN 9.9 g/dL (12.0-16.0); LYMPHOCYTES # (AUTO) 3.4 (1.0-3.2); LYMPHOCYTES % 33.3 % (18.0-39.1); MEAN CORPUSCULAR HEMOGLOBIN 33.4 pg (28-32); MEAN CORPUSCULAR HGB CONC 33.6 g/dL (31-35); MEAN CORPUSCULAR VOLUME 99.7 fL (81-99); MONOCYTES # (AUTO) 0.8 (0.2-0.8); MONOCYTES % 8.1 % (4.4-11.3); NEUTROPHILS # (AUTO) 5.7 (2.1-6.9); NEUTROPHILS % 56.6 % (38.7-80.0); PLATELET COUNT 338 x10e3/uL (140-360); RED BLOOD COUNT 2.96 x10e6/uL (3.6-5.1); RED CELL DISTRIBUTION WIDTH 13.6 % (11.7-14.4)
[2018-08-07 10:09] LABS: ALBUMIN 3.9 g/dL (3.5-5.0); ALBUMIN/GLOBULIN RATIO 1.1 (0.8-2.0); CALCIUM 9.6 mg/dL (8.4-10.2); CREATININE, SERUM 1.56 mg/dL (0.57-1.11)
[2018-08-07 10:15] LABS: CREATINE KINASE MB 0.6 ng/mL (0-5.0)
[2018-08-07 10:23] LABS: B-TYPE NATRIURETIC PEPTIDE2 138.4 pg/mL (0-100)
[2018-08-07 10:26] LABS: INR 0.89; PROTHROMBIN TIME 12.9 seconds (11.9-14.5)
--- NOTE | 2018-08-07 10:38 | Diagnostic Imaging Report ---
EXAM: CHEST SINGLE (PORTABLE), AP Portable DATE: 08/07/2018 Time stamp on exam: 9:53 AM INDICATION: Shortness of breath COMPARISON: None FINDINGS: LINES/TUBES: None LUNGS: No consolidations or edema. PLEURA: No effusions or pneumothorax. HEART AND MEDIASTINUM: Normal size and contour. Vein calcification within the aorta. BONES AND SOFT TISSUES: No acute findings. IMPRESSION: No acute thoracic abnormality. Signed by: Dr. Kendall Bartlett DO on 08/07/2018 10:34 AM
[2018-08-07] MEDS ORDERED: AZITHROMYCIN 500MG/SOD CHL 0.9% 250ML BAG IV SCH (12:30)
[2018-08-07] MEDS: IPRATROPIUM BROMIDE 0.02% 2.5 ML NEB NEB SCH ×2 (13:00→20:00)
[2018-08-07] MEDS: SODIUM CHLORIDE 0.9% 1000ML 1,000 ML IV SCH (13:10)
[2018-08-07 13:50] LABS: BILIRUBIN,URINE NEGATIVE (NEGATIVE); CLARITY,URINE SL CLOUDY (CLEAR); COLOR,URINE YELLOW (YELLOW); KETONES,URINE NEGATIVE (NEGATIVE); LEUKOCYTE ESTERASE ,URINE TRACE (NEGATIVE); NITRITE,URINE NEGATIVE (NEGATIVE); PROTEIN,URINE DIPSTICK NEGATIVE (NEGATIVE); URINE UROBILINOGEN 0.2 mg/dL (0.2 - 1)
[2018-08-07] MEDS: AZITHROMYCIN 500MG/NS 250 ML 250 ML IV SCH (13:50)
[2018-08-07 14:02] LABS: BACTERIA,URINE MANY /HPF; EPITHELIAL CELLS,URINE FEW /LPF
[2018-08-07] MEDS ORDERED: RISPERIDONE 0.5 MG TAB PO ONE (14:30)
[2018-08-07] MEDS ORDERED: HALOPERIDOL LACTATE 5 MG/ML VIAL IV ONE (14:30)
[2018-08-07] MEDS: METHYLPREDNISOLONE SOD SUCC 40 MG/ML VIAL 1ML IV SCH ×2 (14:35→21:48)
[2018-08-07] MEDS: ALBUTEROL SULF 0.083% NEB SOLN 3 ML NEB NEB SCH ×2 (14:39→20:00)
[2018-08-07 15:41] VITALS: BP 145/68
[2018-08-07 15:58] VITALS: BP 145/68
[2018-08-07 16:27] VITALS: BP 145/68
[2018-08-07] MEDS: CEFTRIAXONE SOD 1 GM/NS 50 ML 50 ML IV SCH (16:50)
[2018-08-07 17:00] VITALS: BP 145/68
[2018-08-07 20:00] VITALS: BP 153/62
[2018-08-07 22:02] VITALS: BP 153/62
[2018-08-08] VITALS (7 sets, daily range): BP systolic 147–170; BP diastolic 65–76
[2018-08-08] MEDS: IPRATROPIUM BROMIDE 0.02% 2.5 ML NEB NEB SCH ×4 (00:30→20:00)
[2018-08-08] MEDS: ALBUTEROL SULF 0.083% NEB SOLN 3 ML NEB NEB SCH ×7 (00:30→23:40)
[2018-08-08] MEDS: SODIUM CHLORIDE 0.9% 1000ML 1,000 ML IV SCH (03:35)
[2018-08-08 05:22] LABS: BASOPHILS % 0.1 % (0.0-1.0); HEMATOCRIT 26.3 % (34.2-44.1); HEMOGLOBIN 8.6 g/dL (12.0-16.0); LYMPHOCYTES # (AUTO) 1.1 (1.0-3.2); LYMPHOCYTES % 9.6 % (18.0-39.1); MEAN CORPUSCULAR HEMOGLOBIN 32.5 pg (28-32); MEAN CORPUSCULAR HGB CONC 32.7 g/dL (31-35); MEAN CORPUSCULAR VOLUME 99.2 fL (81-99); MONOCYTES # (AUTO) 0.3 (0.2-0.8); MONOCYTES % 2.8 % (4.4-11.3); NEUTROPHILS # (AUTO) 9.5 (2.1-6.9); NEUTROPHILS % 86.6 % (38.7-80.0); PLATELET COUNT 232 x10e3/uL (140-360); RED BLOOD COUNT 2.65 x10e6/uL (3.6-5.1); RED CELL DISTRIBUTION WIDTH 13.2 % (11.7-14.4)
[2018-08-08 05:46] LABS: CREATININE, SERUM 1.22 mg/dL (0.57-1.11)
--- NOTE | 2018-08-08 06:02 | Diagnostic Imaging Report ---
EXAMINATION: CHEST SINGLE (PORTABLE) COMPARISON: Chest x-ray 08/07/2018 INDICATION: ^PNEUMONIA ^[id number] ^0500 ^Y DISCUSSION: Frontal view of the chest obtained at 0518 hours. HEART AND MEDIASTINUM: Stable cardiomegaly and aortic ectasia. LINES: None. LUNGS: Diffuse hyperinflation. Mild left basilar atelectasis. No interstitial thickening PLEURA: No pleural effusion or pneumothorax. BONES AND SOFT TISSUES: No focal osseous lesion. The soft tissues are normal. IMPRESSION: Left basilar atelectasis. Stable cardiomegaly. Signed by: Dr. Melanie Vora MD on 08/08/2018 5:58 AM
[2018-08-08] MEDS: METHYLPREDNISOLONE SOD SUCC 40 MG/ML VIAL 1ML IV SCH ×3 (06:32→21:39)
--- NOTE | 2018-08-08 06:35 | NUR ---
paged dr cervantes pt c/o shortness of breath and crackles to right upper ext with mild bilat lower leg edema. will await orders.
--- NOTE | 2018-08-08 07:02 | NUR ---
RECEIVED PATIENT RESTING IN BED. RESPIRATIONS EVEN AND UNLABORED. NO ACUTE DISTRESS NOTED. CALL LIGHT WITHIN REACH. BED IN THE LOWEST POSITION.
[2018-08-08] MEDS ORDERED: FUROSEMIDE20 MG PO (09:04)
[2018-08-08] MEDS ORDERED: CLONIDINE HCL0.1 MG PO (09:18)
[2018-08-08] MEDS ORDERED: POTASSIUM CHLO20 ME1 PO (09:18)
[2018-08-08] MEDS ORDERED: PANTOPRAZOLE SO40 MG PO (09:18)
[2018-08-08] MEDS ORDERED: VITAMIN B-121000 MC2 PO (09:18)
[2018-08-08] MEDS ORDERED: LEVOTHYROXINE75 MCG PO (09:18)
[2018-08-08] MEDS ORDERED: BUDESONIDE0.5 MG/2 M INH (09:18)
[2018-08-08] MEDS ORDERED: ASCORBIC ACID500 MG PO (09:18)
[2018-08-08] MEDS ORDERED: VITAMIN D1000 UNI1 PO (09:18)
[2018-08-08] MEDS ORDERED: OXYBUTYNIN CHLOR5 MG PO (09:18)
[2018-08-08] MEDS: OXYBUTYNIN CHLORIDE 5 MG TAB PO SCH (11:03)
[2018-08-08] MEDS: AMLODIPINE BESYLATE 10 MG TAB PO SCH (11:03)
[2018-08-08] MEDS: POTASSIUM CHLORIDE 20 MEQ TAB CR PO SCH (11:03)
[2018-08-08] MEDS: AMIODARONE HCL 200 MG TAB PO SCH (11:03)
[2018-08-08] MEDS: CLOPIDOGREL BISULFATE 75 MG TAB PO SCH (11:03)
[2018-08-08] MEDS: FUROSEMIDE 20 MG TAB PO SCH (11:03)
[2018-08-08] MEDS: ASCORBIC ACID 500 MG TAB PO SCH (11:04)
[2018-08-08] MEDS: CHOLECALCIFEROL 1,000 UNIT TAB PO SCH (11:04)
[2018-08-08] MEDS: CYANOCOBALAMIN 1,000 MCG TAB PO SCH (11:04)
[2018-08-08] MEDS: PANTOPRAZOLE SOD 40 MG TABEC PO SCH (11:04)
[2018-08-08] MEDS: AZITHROMYCIN 500MG/NS 250 ML 250 ML IV SCH (12:49)
[2018-08-08] MEDS: CLONIDINE HCL 0.1 MG TAB PO SCH ×2 (14:17→21:38)
[2018-08-08] MEDS: CEFTRIAXONE SOD 1 GM/NS 50 ML 50 ML IV SCH (14:17)
[2018-08-08] MEDS: OMEGA 3 POLYUNSAT FATTY ACIDS 1000 MG SOFTGEL PO SCH (16:05)
[2018-08-08] MEDS ORDERED: DHA PO SCH (17:00)
[2018-08-08] MEDS ORDERED: FISH OIL PO SCH (17:00)
[2018-08-08] MEDS ORDERED: EPA PO SCH (17:00)
--- NOTE | 2018-08-08 19:19 | NUR ---
REPORT GIVEN TO ONCOMING NURSE, PATIENT IS RESTING IN BED. NO ACUTE DISTRESS NOTED, RESPIRATIONS EVEN AND UNLABORED. CALL LIGHT WITHIN REACH. BED IN THE LOWEST POSITION. BED ALARM ON.
[2018-08-08] MEDS: ASPIRIN 81 MG CHEW TAB PO SCH (21:38)
[2018-08-08] MEDS: DONEPEZIL HCL 5 MG TAB PO SCH (21:38)
[2018-08-09] VITALS (8 sets, daily range): BP systolic 136–159; BP diastolic 61–70
[2018-08-09] MEDS: ALBUTEROL SULF 0.083% NEB SOLN 3 ML NEB NEB SCH ×6 (03:30→23:37)
[2018-08-09] MEDS: IPRATROPIUM BROMIDE 0.02% 2.5 ML NEB NEB SCH ×4 (03:30→19:00)
--- NOTE | 2018-08-09 05:21 | Consultation ---
DATE OF CONSULTATION: Pulmonary Consultation. REASON FOR CONSULTATION: Wheezing and shortness of breath. HISTORY OF PRESENT ILLNESS: Ms. Todd is an 87-year-old female. She is unable to give me any detailed history and says that she does not remember why she came to the Emergency Room. The source of history is the chart. She has Alzheimer dementia, atrial tachycardia, asthma. She presented with worsening shortness of breath. PAST REVIEW OF SYSTEMS: Unable to elicit a detailed review of system because of the patient's dementia. PAST MEDICAL HISTORY: Hypothyroidism and Alzheimer disease. FAMILY AND SOCIAL HISTORY: She does not smoke and does not drink. PHYSICAL EXAMINATION: VITAL SIGNS: Temperature 98.4, pulse of 80, blood pressure 153/89, respiratory rate of 18, and O2 saturation 96%. HEENT: Head is atraumatic and normocephalic. NECK: Supple. CHEST: Wheezing bilaterally. HEART: S1 and S2 audible. ABDOMEN: Soft and nontender. EXTREMITIES: Trace pedal edema. NEUROLOGIC: Awake and alert. LABORATORY DATA: White count of 11,000, hemoglobin 8.6, and platelets 232. Chemistry, sodium 137, potassium 4.0, chloride 102, BUN 20, creatinine 1.22 and it was 1.56 yesterday. Chest x-ray is showing some atelectasis and congestion, possibility of right middle lobe infiltrate pneumonia. ASSESSMENT: Ms. Todd is an 87-year-old female, likely has pneumonia versus asthma exacerbation. The patient has history of Alzheimer dementia. PLAN: I will continue the patient on nebulizer treatment and IV antibiotics. As ordered, reduce the dose of steroids. Oxygen as needed to keep the O2 sat more than or equal to 92%. MD DESHAWN Oconnor/BEL /[id number]
[2018-08-09] MEDS: METHYLPREDNISOLONE SOD SUCC 40 MG/ML VIAL 1ML IV SCH ×3 (07:03→22:30)
[2018-08-09] MEDS: LEVOTHYROXINE SODIUM 75 MCG TAB PO SCH (07:03)
--- NOTE | 2018-08-09 08:30 | NUR ---
lab notified me of ESBL urine and isolation precautions initiated. Dr Mckinney notified.
[2018-08-09] MEDS: PANTOPRAZOLE SOD 40 MG TABEC PO SCH (09:19)
[2018-08-09] MEDS: OXYBUTYNIN CHLORIDE 5 MG TAB PO SCH (09:19)
[2018-08-09] MEDS: AMLODIPINE BESYLATE 10 MG TAB PO SCH (09:19)
[2018-08-09] MEDS: OMEGA 3 POLYUNSAT FATTY ACIDS 1000 MG SOFTGEL PO SCH ×2 (09:19→17:32)
[2018-08-09] MEDS: CLONIDINE HCL 0.1 MG TAB PO SCH ×3 (09:19→21:18)
[2018-08-09] MEDS: AMIODARONE HCL 200 MG TAB PO SCH (09:19)
[2018-08-09] MEDS: FUROSEMIDE 20 MG TAB PO SCH (09:19)
[2018-08-09] MEDS: CLOPIDOGREL BISULFATE 75 MG TAB PO SCH (09:19)
[2018-08-09] MEDS: CYANOCOBALAMIN 1,000 MCG TAB PO SCH (09:19)
[2018-08-09] MEDS: POTASSIUM CHLORIDE 20 MEQ TAB CR PO SCH (09:19)
[2018-08-09] MEDS: ASCORBIC ACID 500 MG TAB PO SCH (09:19)
[2018-08-09] MEDS: CHOLECALCIFEROL 1,000 UNIT TAB PO SCH (09:20)
[2018-08-09] MEDS: AZITHROMYCIN 500MG/NS 250 ML 250 ML IV SCH (12:39)
--- NOTE | 2018-08-09 13:47 | NUR ---
SOCIAL WORK INITIAL ASSESSMENT Welfare Analyst to bedside to discuss plan of care with patient/family. CM/SW role and care transitions discussed. Anticipated discharge plan discussed along with duration of care. CM/SW discussed patients right to make decisions in care. CM/SW work hours given. Patient lives: [facility]- PT IS CONFUSED AND STATES SHE IS STILL LIVING AT HOME. Admit/Transfer: VIA ED POA/Emergency contact: PT GIVES GENE [phone] Current/Previous Home Health: FACILITY PCP/Follow-up Care: FACILITY Current/Previous DME: SHE STATES NONE Other Services: NONE Employment Status: RETIRED Areas of Concerns: NONE Referral Needs: NONE Education Needs: NONE IMM/ARMENTA given and signed (if applicable): UPON ADMISSION Goal for discharge: RETURN TO FACILITY CM/SW left business card at the bedside with contact information. Name and number was also written on the patients whiteboard. Patient verbalized understanding of discussion. CM will follow-up with ongoing discharge and transition of care needs.
[2018-08-09] MEDS: CEFTRIAXONE SOD 1 GM/NS 50 ML 50 ML IV SCH (17:32)
[2018-08-09] MEDS ORDERED: NITROFURANTOIN MACROCRYSTALS 100 MG CAP PO SCH (18:00)
--- NOTE | 2018-08-09 18:11 | NUR ---
RCD PT FROM OBS BY BED PT IS ALERT AND ORIENTED VITALS CHECKED PT RESTING ON BED FAMILY AT BED SIDE BED LOW AND LOCKED CALL LIGHT IN REACH
--- NOTE | 2018-08-09 18:22 | NUR ---
patient transferred to floor.
--- NOTE | 2018-08-09 18:48 | Progress Note ---
DATE: SUBJECTIVE: The patient is doing well. Breathing is little better. Occasional coughing and wheezing. OBJECTIVE: VITAL SIGNS: Temperature 96, pulse of 87, blood pressure 159/67, respiratory rate 18, and O2 sats 95%. HEENT: Head is atraumatic and normocephalic. NECK: Supple. CHEST: Wheezing is better. HEART: S1 and S2 audible. ABDOMEN: Soft. LABORATORY DATA: White count of 11,000, hemoglobin 8.6, and platelets 233. Chemistry; sodium 137, BUN 20, creatinine 1.2. ASSESSMENT AND PLAN: Reactive airways and pneumonia. Continue the patient on IV Solu-Medrol 20 mg q.8 hours, nebulizer treatment, and IV Rocephin and azithromycin as ordered. Oxygen as needed. MD DESHAWN Oconnor/BEL /[id number]
--- NOTE | 2018-08-09 19:00 | NUR ---
PT RESTING ON BED BED SIDE REPORT GIVEN TO ONCOMING NURSE
[2018-08-09] MEDS: ASPIRIN 81 MG CHEW TAB PO SCH (21:18)
[2018-08-09] MEDS: DONEPEZIL HCL 5 MG TAB PO SCH (21:18)
[2018-08-10] VITALS (7 sets, daily range): BP systolic 131–169; BP diastolic 60–79
[2018-08-10] MEDS: ALBUTEROL SULF 0.083% NEB SOLN 3 ML NEB NEB SCH ×5 (00:14→19:27)
[2018-08-10] MEDS: IPRATROPIUM BROMIDE 0.02% 2.5 ML NEB NEB SCH ×4 (00:23→19:27)
[2018-08-10] MEDS: METHYLPREDNISOLONE SOD SUCC 40 MG/ML VIAL 1ML IV SCH (05:11)
[2018-08-10] MEDS: LEVOTHYROXINE SODIUM 75 MCG TAB PO SCH (05:11)
--- NOTE | 2018-08-10 07:05 | NUR ---
RCD PT BED PT IS ALERT AND ORIENTED PT RESTING ON BED NO SIGNS OF ANY DISTRESS NOTED FAMILY AT BED SIDE BED LOW AND LOCKED CALL LIGHT IN REACH
--- NOTE | 2018-08-10 07:08 | NUR ---
REPORT GIVEN TO ONCOMING NURSE,WALKING ROUNDS MADE.PT RESTING IN BED WITH NO S/S OF DISTRESS.
[2018-08-10] MEDS: CLONIDINE HCL 0.1 MG TAB PO SCH ×3 (08:57→21:00)
[2018-08-10] MEDS: AMIODARONE HCL 200 MG TAB PO SCH (08:57)
[2018-08-10] MEDS: OMEGA 3 POLYUNSAT FATTY ACIDS 1000 MG SOFTGEL PO SCH ×2 (08:58→16:48)
[2018-08-10] MEDS: AMLODIPINE BESYLATE 10 MG TAB PO SCH (08:58)
[2018-08-10] MEDS: FUROSEMIDE 20 MG TAB PO SCH (08:58)
[2018-08-10] MEDS: CLOPIDOGREL BISULFATE 75 MG TAB PO SCH (08:58)
[2018-08-10] MEDS: CYANOCOBALAMIN 1,000 MCG TAB PO SCH (08:58)
[2018-08-10] MEDS: POTASSIUM CHLORIDE 20 MEQ TAB CR PO SCH (08:58)
[2018-08-10] MEDS: PANTOPRAZOLE SOD 40 MG TABEC PO SCH (08:58)
[2018-08-10] MEDS: ASCORBIC ACID 500 MG TAB PO SCH (08:59)
[2018-08-10] MEDS: CHOLECALCIFEROL 1,000 UNIT TAB PO SCH (08:59)
[2018-08-10] MEDS: OXYBUTYNIN CHLORIDE 5 MG TAB PO SCH (09:00)
[2018-08-10] MEDS: NITROFURANTOIN 50 MG CAP PO SCH ×2 (10:10→16:47)
[2018-08-10] MEDS: AZITHROMYCIN 500MG/NS 250 ML 250 ML IV SCH (13:00)
--- NOTE | 2018-08-10 15:30 | NUR ---
VERY HARD TO GET THE IV LINE PAGED AND NOTIFIED DR PINTO GOT THE ORDER TO DC IV ANTIBIOTIC AND NEW ORDER FOR PO ANTIBIOTICS
[2018-08-10] MEDS: LEVOFLOXACIN 500 MG TAB PO SCH (16:15)
[2018-08-10] MEDS ORDERED: NITROFURANTOIN 50 MG CAP PO SCH (17:00)
--- NOTE | 2018-08-10 19:20 | NUR ---
PT RESTING ON BED BED SIDE REPORT GIVEN TO ONCOMING NURSE
[2018-08-10] MEDS: DONEPEZIL HCL 5 MG TAB PO SCH (21:00)
[2018-08-10] MEDS: ASPIRIN 81 MG CHEW TAB PO SCH (21:00)
[2018-08-11] VITALS (9 sets, daily range): BP systolic 116–147; BP diastolic 56–66
[2018-08-11] MEDS: IPRATROPIUM BROMIDE 0.02% 2.5 ML NEB NEB SCH ×4 (00:02→19:48)
[2018-08-11] MEDS: ALBUTEROL SULF 0.083% NEB SOLN 3 ML NEB NEB SCH ×6 (00:02→19:48)
[2018-08-11] MEDS: LEVOTHYROXINE SODIUM 75 MCG TAB PO SCH (05:34)
--- NOTE | 2018-08-11 07:03 | NUR ---
Received patient mid fowlers position, side rails upx2, call light within reach, bed alarm on. AAOX1 to person. Respirations even and unlabored. O2 2L NC. Will continue to monitor.
--- NOTE | 2018-08-11 07:16 | NUR ---
REPORT GIVEN TO ONCOMING NURSE,WALKING ROUNDS MADE.PT RESTING IN BED WITH NO S/S OF DISTRESS.
[2018-08-11] MEDS: FUROSEMIDE 20 MG TAB PO SCH (08:58)
[2018-08-11] MEDS: NITROFURANTOIN 50 MG CAP PO SCH ×2 (08:58→16:01)
[2018-08-11] MEDS: POTASSIUM CHLORIDE 20 MEQ TAB CR PO SCH (08:58)
[2018-08-11] MEDS: CLONIDINE HCL 0.1 MG TAB PO SCH ×3 (08:58→21:20)
[2018-08-11] MEDS: AMIODARONE HCL 200 MG TAB PO SCH (08:58)
[2018-08-11] MEDS: OXYBUTYNIN CHLORIDE 5 MG TAB PO SCH (08:58)
--- NOTE | 2018-08-11 08:58 | NUR ---
Attempted to start IV for scheduled IV solumedrol. Patient's states " Please don't stick her, they attempted multiple times yesterday and failed. The doctor states she does not have to have an IV."
[2018-08-11] MEDS: ASCORBIC ACID 500 MG TAB PO SCH (08:59)
[2018-08-11] MEDS: CLOPIDOGREL BISULFATE 75 MG TAB PO SCH (08:59)
[2018-08-11] MEDS: PANTOPRAZOLE SOD 40 MG TABEC PO SCH (08:59)
[2018-08-11] MEDS: OMEGA 3 POLYUNSAT FATTY ACIDS 1000 MG SOFTGEL PO SCH ×2 (08:59→16:01)
[2018-08-11] MEDS: CYANOCOBALAMIN 1,000 MCG TAB PO SCH (08:59)
[2018-08-11] MEDS: CHOLECALCIFEROL 1,000 UNIT TAB PO SCH (08:59)
[2018-08-11] MEDS: AMLODIPINE BESYLATE 10 MG TAB PO SCH (08:59)
[2018-08-11] MEDS ORDERED: METHYLPREDNISOLONE SOD SUCC 40 MG/ML VIAL 1ML IV SCH (09:00)
[2018-08-11] MEDS: PREDNISONE 20 MG TAB PO SCH (11:59)
[2018-08-11 12:26] LABS: BASOPHILS % 0.4 % (0.0-1.0); EOSINOPHILS % 0.1 % (0.0-6.0); HEMATOCRIT 32.1 % (34.2-44.1); HEMOGLOBIN 10.1 g/dL (12.0-16.0); LYMPHOCYTES # (AUTO) 2.6 (1.0-3.2); LYMPHOCYTES % 22.7 % (18.0-39.1); MEAN CORPUSCULAR HEMOGLOBIN 32.7 pg (28-32); MEAN CORPUSCULAR HGB CONC 31.5 g/dL (31-35); MEAN CORPUSCULAR VOLUME 103.9 fL (81-99); MONOCYTES # (AUTO) 1.3 (0.2-0.8); MONOCYTES % 11.6 % (4.4-11.3); NEUTROPHILS # (AUTO) 6.8 (2.1-6.9); NEUTROPHILS % 60.1 % (38.7-80.0); PLATELET COUNT 325 x10e3/uL (140-360); RED BLOOD COUNT 3.09 x10e6/uL (3.6-5.1); RED CELL DISTRIBUTION WIDTH 13.4 % (11.7-14.4)
[2018-08-11 12:44] LABS: ANION GAP 13.6 mmol/L (8-16); CALCIUM 8.8 mg/dL (8.4-10.2); CREATININE, SERUM 1.5 mg/dL (0.57-1.11); POTASSIUM 4.6 mmol/L (3.5-5.1)
--- NOTE | 2018-08-11 13:28 | NUR ---
FAXED CLINICALS TO [facility], WILL ATTEMPT TO GET AUTH
--- NOTE | 2018-08-11 15:00 | NUR ---
SPOKE WITH NATALIYA GUILLAUME WITH FAX. INFORMED THAT DR PINTO STATES HER THERAPY NEEDS SHOULD BE ENOUGH TO GET AUTH FOR SNF, IF NOT WILL NEED TO SPEAK WITH THE TO DETERMINE IF PATIENT WILL GO PENDING AT [facility] OR IF SHE WILL GO HOME WITH . WAITING ON SHAHEEN FROM [facility] TO LET KNOW IF ENOUGH TO QUALIFY FOR SNF.
[2018-08-11] MEDS: LEVOFLOXACIN 500 MG TAB PO SCH (16:01)
--- NOTE | 2018-08-11 16:10 | NUR ---
Spoke with pt and her Troy Todd at bedside. Discussed discharge plan and reminded them of Medicare rights. Pt's Gene signed IMM letter. Copy to given to Troy.
--- NOTE | 2018-08-11 18:46 | NUR ---
Resting in bed, bed alarm on. No s/s of acute distress noted. Report to be given to oncoming nurse.
--- NOTE | 2018-08-11 19:25 | NUR ---
Patient received lying in bed. AAO x 2. No c/o pain. No signs of respiratory distress. Bed locked and in lowest position. Bed rails up x 2. Patient instructed to call for assistance when needed. Call light within reach.
[2018-08-11] MEDS: DONEPEZIL HCL 5 MG TAB PO SCH (21:20)
[2018-08-11] MEDS: ASPIRIN 81 MG CHEW TAB PO SCH (21:20)
[2018-08-12] MEDS: IPRATROPIUM BROMIDE 0.02% 2.5 ML NEB NEB SCH ×3 (00:05→10:45)
[2018-08-12] MEDS: ALBUTEROL SULF 0.083% NEB SOLN 3 ML NEB NEB SCH ×5 (00:05→14:54)
[2018-08-12 06:13] VITALS: BP 134/60
[2018-08-12] MEDS: LEVOTHYROXINE SODIUM 75 MCG TAB PO SCH (06:29)
--- NOTE | 2018-08-12 07:13 | NUR ---
pt asleep resp even and unlabored at this time no distress noted, pt arousal to name, call light in reach.
[2018-08-12 08:00] VITALS: BP 167/73
[2018-08-12] MEDS: POTASSIUM CHLORIDE 20 MEQ TAB CR PO SCH (08:47)
[2018-08-12] MEDS: FUROSEMIDE 20 MG TAB PO SCH (08:47)
[2018-08-12] MEDS: NITROFURANTOIN 50 MG CAP PO SCH (08:47)
[2018-08-12] MEDS: CLONIDINE HCL 0.1 MG TAB PO SCH (08:47)
[2018-08-12] MEDS: OMEGA 3 POLYUNSAT FATTY ACIDS 1000 MG SOFTGEL PO SCH (08:47)
[2018-08-12] MEDS: OXYBUTYNIN CHLORIDE 5 MG TAB PO SCH (08:47)
[2018-08-12] MEDS: AMIODARONE HCL 200 MG TAB PO SCH (08:47)
[2018-08-12] MEDS: AMLODIPINE BESYLATE 10 MG TAB PO SCH (08:47)
[2018-08-12] MEDS: PREDNISONE 20 MG TAB PO SCH (08:48)
[2018-08-12] MEDS: PANTOPRAZOLE SOD 40 MG TABEC PO SCH (08:48)
[2018-08-12] MEDS: CHOLECALCIFEROL 1,000 UNIT TAB PO SCH (08:48)
[2018-08-12] MEDS: CLOPIDOGREL BISULFATE 75 MG TAB PO SCH (08:48)
[2018-08-12] MEDS: ASCORBIC ACID 500 MG TAB PO SCH (08:48)
[2018-08-12] MEDS: CYANOCOBALAMIN 1,000 MCG TAB PO SCH (08:48)
[2018-08-12 12:00] VITALS: BP 126/58
--- NOTE | 2018-08-12 12:43 | NUR ---
Noris waldrop/ Ian called to inquire about pt. Notified Noris that pt can go to SNF when insurance gives auth. She stated she should be able to give an answer today after further review. DC Plan: DC to SNF when insurance gives auth: [facility] [address] [place], [place] [address]
--- NOTE | 2018-08-12 13:49 | NUR ---
Spoke to charge nurseKurt at [facility] and notified him that insurance gave us auth to send pt back. Requested if they had auth and if pt can return. He stated yes and pt can come and will go to room 29A. Notified Malina VALLEJO
[2018-08-12 16:00] VITALS: BP 159/68
--- NOTE | 2018-08-12 16:31 | NUR ---
pt discharged to [facility], recieved report
[2018-08-12] MEDS ORDERED: BUDESONIDE/FORMOTEROL 160/4.5MCG INHALER INH SCH (19:00)
--- NOTE | 2018-08-14 10:42 | Discharge Summary ---
HOSPITAL COURSE: An 87-year-old female patient, who was living at [facility], developed cough and congestion. She was treated with Levaquin and prednisone, symptoms did not improve, so she was transferred to the hospital. The patient was admitted pneumonia. She was treated for tracheobronchitis, failed outpatient treatment on the COPD. She also had a urinary tract infection, urine culture growing E coli ESBL. The patient's symptoms started to improve. She also received physical therapy. She was discharged back to alf. DISCHARGE DIAGNOSES: 1. Chronic obstructive pulmonary disease exacerbation, failed outpatient treatment. 2. Urinary tract infection, extended-spectrum beta-lactamases Escherichia coli. DISCHARGE MEDICATIONS: Reconciled. DIET: Regular diet. ACTIVITY: As tolerated. MD ULISSES Julien/BEL /[id number]
== END 2018-08-12 16:10 | disposition other institution (70) | DRG 190 ==
LOC: ER 08:55 → ERHOLD 12:19 → IMCU 15:06 → OBSVTOIN 08-09 10:56 → MED/SURG2 08-09 18:05
PROVIDERS: ADMIT Internal Medicine; ATTEND Internal Medicine
DX: J44.0 Chronic obstructive pulmonary disease with (acute) lower respiratory infection (principal); J18.9 Pneumonia, unspecified organism; N39.0 Urinary tract infection, site not specified; I47.1 Supraventricular tachycardia; J45.901 Unspecified asthma with (acute) exacerbation; J44.1 Chronic obstructive pulmonary disease with (acute) exacerbation; B96.20 Unspecified Escherichia coli [E. coli] as the cause of diseases classified elsewhere; Z16.12 Extended spectrum beta lactamase (ESBL) resistance; G30.9 Alzheimer's disease, unspecified; F02.80 Dementia in other diseases classified elsewhere, unspecified severity, without behavioral disturbance, psychotic disturbance, mood disturbance, and anxiety; E87.70 Fluid overload, unspecified
CPT/HCPCS: 36415; 36600; 71045; 80048; 80053; 81001; 82550; 82553; 82805; 83605; 83880; 84484; 85025; 85379; 85610; 85730; 87040; 87086; 87186; 93005; 94640; 99284; G0378; J0456; J0696; J1630; J2920; J7030; J7512

== ENCOUNTER 2018-11-30 03:00 | Emergency (ER) | payer MEDICARE ==
[~2018-11-30] VITALS: Ht 167.6 cm; Wt 86.2 kg
[~2018-11-30 03:00] MED LIST changes: +ASCORBIC ACID500 MG PO; +BUDESONIDE0.5 MG/2 M INH; +FUROSEMIDE20 MG PO; +LEVOTHYROXINE75 MCG PO; +OXYBUTYNIN CHLOR5 MG PO; +PANTOPRAZOLE SO40 MG PO; +POTASSIUM CHLO20 ME1 PO; +VITAMIN B-121000 MC2 PO; +VITAMIN D1000 UNI1 PO
[2018-11-30 03:37] LABS: BASOPHILS % 0.4 % (0.0-1.0); BILIRUBIN,URINE NEGATIVE (NEGATIVE); CLARITY,URINE CLOUDY (CLEAR); COLOR,URINE YELLOW (YELLOW); EOSINOPHILS # (AUTO) 0.2 (0.0-0.4); EOSINOPHILS % 2.1 % (0.0-6.0); HEMATOCRIT 32.7 % (34.2-44.1); KETONES,URINE NEGATIVE (NEGATIVE); LEUKOCYTE ESTERASE ,URINE MODERATE (NEGATIVE); LYMPHOCYTES # (AUTO) 4.1 (1.0-3.2); LYMPHOCYTES % 53.5 % (18.0-39.1); MEAN CORPUSCULAR HEMOGLOBIN 30.5 pg (28-32); MEAN CORPUSCULAR HGB CONC 33.6 g/dL (31-35); MEAN CORPUSCULAR VOLUME 90.6 fL (81-99); MONOCYTES # (AUTO) 0.7 (0.2-0.8); MONOCYTES % 8.9 % (4.4-11.3); NEUTROPHILS # (AUTO) 2.7 (2.1-6.9); NEUTROPHILS % 34.8 % (38.7-80.0); NITRITE,URINE NEGATIVE (NEGATIVE); PLATELET COUNT 242 x10e3/uL (140-360); PROTEIN,URINE DIPSTICK NEGATIVE (NEGATIVE); RED BLOOD COUNT 3.61 x10e6/uL (3.6-5.1); RED CELL DISTRIBUTION WIDTH 13.2 % (11.7-14.4); URINE UROBILINOGEN 0.2 mg/dL (0.2 - 1)
[2018-11-30 03:55] LABS: ALBUMIN 4.3 g/dL (3.5-5.0); ALBUMIN/GLOBULIN RATIO 1.5 (0.8-2.0); ANION GAP 18.2 mmol/L (8-16); CALCIUM 9.8 mg/dL (8.4-10.2); CREATININE, SERUM 1.48 mg/dL (0.57-1.11); POTASSIUM 4.2 mmol/L (3.5-5.1)
--- NOTE | 2018-11-30 03:56 | Diagnostic Imaging Report ---
EXAMINATION: CHEST SINGLE (PORTABLE) INDICATION: ^SOB, COPD, ASTHMA ^[id number] ^0340 COMPARISON: 08/08/2018 FINDINGS: AP view TUBES and LINES: None. LUNGS: Lungs are well inflated. Mild central peribronchial cuffing. PLEURA: No pleural effusion or pneumothorax. HEART AND MEDIASTINUM: The cardiac silhouette is prominent on this AP view. Aorta is mildly calcified and tortuous. BONES AND SOFT TISSUES: No acute osseous lesion. Soft tissues are unremarkable. UPPER ABDOMEN: No free air under the diaphragm. IMPRESSION: Mild central peribronchial cuffing. Signed by: Dr. Edi Centeno MD on 11/30/2018 3:53 AM
[2018-11-30 04:07] LABS: BACTERIA,URINE MANY /HPF; EPITHELIAL CELLS,URINE MODERATE /LPF; WBC,URINE (MAN) >50 /HPF (0-5)
[2018-11-30 04:24] VITALS: BP 133/54
[2018-11-30] MEDS ORDERED: MACROBID 100 M100 MG PO (04:36)
--- NOTE | 2018-11-30 07:12 | NUR ---
rx for macrobid and lasix called in to [facility], .
== END 2018-11-30 04:50 | disposition home or self-care (01) ==
LOC: ER 03:00
DX: R06.09 Other forms of dyspnea (principal); I50.21 Acute systolic (congestive) heart failure; R60.9 Edema, unspecified; N30.91 Cystitis, unspecified with hematuria; F03.90 Unspecified dementia, unspecified severity, without behavioral disturbance, psychotic disturbance, mood disturbance, and anxiety
CPT/HCPCS: 36415; 71045; 80053; 81001; 83880; 85025; 87086; 93005; 99284